=== PATIENT | female | born 1970 | race Caucasian/White ===

== ENCOUNTER 2021-06-13 06:56 | Emergency (ER) | payer BC ==
[2021-06-13] MEDS ORDERED: PROAIR DIGIHAL90 MCG INH (10:13)
[2021-06-13] MEDS ORDERED: VIBRAMYCIN 100100 MG PO (10:13)
[2021-06-13] MEDS ORDERED: IBUPROFEN800 MG PO (10:13)
== END 2021-06-13 10:40 | disposition home or self-care (01) ==
LOC: ER1 06:56
DX: J18.9 Pneumonia, unspecified organism (principal); J45.909 Unspecified asthma, uncomplicated
CPT/HCPCS: 71045; 99284